=== PATIENT | male | born 1990 | race Caucasian/White ===

== ENCOUNTER 2019-09-30 10:01 | Emergency (ER) | payer BC, SELFPAY ==
[2019-09-30 10:20] VITALS: BP 124/74; PULSE 71; RESP 14; TEMP 36.8; O2SAT 98
--- NOTE | 2019-09-30 11:01 | ED.URI ---
HPI - URI/Sore Throat General Chief Complaint: Upper Respiratory Infection Stated Complaint: Cough/Shortness of Breath Time Seen by Provider: 09/30/19 11:02 Source: RN notes reviewed Mode of arrival: ambulatory Limitations: no limitations History of Present Illness HPI Narrative: 29-year-old male who presents to the ER with complaints of cough and nasal discharge for the past 24 hours, denies any fever, no sore throat, denies any acute dyspnea. Lungs noted to be clear on auscultation, no wheezing or tachypnea noted,SAO2 98% on room air. Patient states that he has taken some OTC cold and sinus medication for his symptoms. Patient states that he has to have release to return to work since he had cough.Patient denies any recent travel or any known exposure to ill contacts. MD elicited complaint: cough, rhinorrhea and nasal congestion Onset (ago): day(s) (1) Consistency: improved Severity: mild Description of mucous: clear Able to tolerate fluids by mouth: Yes Exacerbating factors: nothing Relieving factors: OTC cold medicine Associated symptoms: rhinorrhea, nasal congestion and cough Treatments prior to arrival: cold medicine Related Data Home Medications Medication Instructions Recorded Confirmed No Home Medications 09/30/19 09/30/19 Allergies Allergy/AdvReac Type Severity Reaction Status Date / Time No Known Allergies Allergy Verified 09/30/19 10:27 Review of Systems Review of Systems: Narrative: CONSTITUTIONAL: Denies fever, chills, or sweats. EYES: Denies visual changes, redness, or discharge. ENT: Positive rhinorrhea,nasal congestion,no sore throat, or otalgia. CARDIOVASCULAR: Denies chest pain, palpitations, or edema. RESPIRATORY:Positive for dry cough denies dyspnea. GASTROINTESTINAL: Denies abdominal pain, nausea, vomiting, or diarrhea. GENITOURINARY: Denies dysuria or hematuria. SKIN: Denies rash or itching. MUSCULOSKELETAL: Denies back pain, joint pain, or myalgia. NEUROLOGIC: Denies headache, numbness, or weakness. PSYCHIATRIC: Denies anxiety or depression. All systems reviewed & are unremarkable except as noted in HPI and below PMFSH Past Medical History Medical History (Updated 10/02/19 @ 10:08 by Katlyn Do NP) No significant medical problems Social History Social History (Updated 10/02/19 @ 09:51 by Katlyn Do NP) Smoking status: Unknown if ever smoked Living arrangements: with family Gender identity (if verbalized by the patient): Male Comments At time of signature, agree with nursing past medical, surgical, social history. There is no relevant family history pertinent to the presenting complaint Exam Narrative: Exam Narrative: GENERAL: Well-appearing, well-nourished, and in no acute distress. HEAD: Normocephalic, atraumatic. EYES: PERRLA and EOMI. ENT: Nares red clear rhinorrhea no epistaxis. Mucous membranes moist.TM's normal with good light reflex, throat red with no lesions or exudates, no tonsil swelling, post nasal drainage noted NECK: Supple.no lymphadenopathy, CHEST: Clear to auscultation. No respiratory distress.dry cough denies any shortness of breath, SAO2 98% on room air. HEART: Regular rate and rhythm. No murmur heard. Normal peripheral pulses. ABDOMEN: Soft, nontender, nondistended, normal active bowel sounds. EXTREMITIES: Normal range of motion. No edema. SKIN: Warm, dry, no rash. NEURO: No focal deficits. Alert and oriented x3. Course Vital Signs Vital signs: Vital Signs Temperature 36.8 C 09/30/19 10:20 Pulse Rate 71 09/30/19 10:20 Respiratory Rate 14 09/30/19 10:20 Blood Pressure 124/74 09/30/19 10:20 Pulse Oximetry 98 09/30/19 10:20 Temperature 36.8 C 09/30/19 10:20 Pulse Rate 71 09/30/19 10:20 Respiratory Rate 14 09/30/19 10:20 Blood Pressure 124/74 09/30/19 10:20 Pulse Oximetry 98 09/30/19 10:20 MDM - URI/Sore Throat Differential Diagnosis Differential diagnosis: Likely upper respiratory infection,
== END 2019-09-30 11:50 | disposition home or self-care (01) ==
PROVIDERS: Emergency Provider Registered Nurse
DX: J06.9 Acute upper respiratory infection, unspecified (principal)
CPT/HCPCS: 87081; 87880; 99203; G0463